=== PATIENT | female | born 1980 | race Caucasian/White ===

== ENCOUNTER 2018-03-13 15:00 | Emergency (ER) | payer OTHER ==
[2018-03-13 15:16] VITALS: O2SAT 99
--- NOTE | 2018-03-13 15:23 | C.PDOC ---
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 No laceration or nail bed injury. Denies wrist/elbow or arm pain. R hand dominant./ Time Seen by Provider: 03/13/18 15:20 Chief Complaint (Nursing): Upper Extremity Problem/Injury History Per: Patient, [employer] Electrical Engineer (KAELA Quach) Onset/Duration Of Symptoms: Sudden Onset Current Symptoms Are (Timing): Still Present Quality: Sharp Severity: Moderate Exacerbating Factor(s): Strenuous Use Of Affected Area Past Medical History Reviewed: Historical Data, Nursing Documentation Vital Signs: Last Vital Signs Temp 98 F 03/13/18 15:13 Pulse 98 H 03/13/18 15:13 Resp 18 03/13/18 15:13 BP 111/74 03/13/18 15:13 Pulse Ox 99 03/13/18 15:13 - Medical History PMH: No Chronic Diseases Family History: States: Unknown Family Hx - Social History Hx Alcohol Use: No Hx Substance Use: No - Immunization History Hx Tetanus Toxoid Vaccination: No Hx Influenza Vaccination: No Hx Pneumococcal Vaccination: No Review Of Systems Except As Marked, All Systems Reviewed And Found Negative. Musculoskeletal: Positive for: Hand Pain. Negative for: Shoulder Pain, Arm Pain, Back Pain, Leg Pain Physical Exam - Physical Exam Appears: Well Head: Atraumatic Extremity: Tenderness (per RN R thumb w small deformity) ED Course And Treatment O2 Sat by Pulse Oximetry: 99 Pulse Ox Interpretation: Normal Medical Decision Making Medical Decision Making: tylenol initiated for pain r/o subluxation/ tendon injury/ fracture xray ordered endorsed to ground provider Dr Joyce for followup and dispo. Disposition Discussed With : Ashanti Joyce Doctor Will See Patient In The: ED - Disposition Disposition: HOME/ ROUTINE Disposition Time: 15:35 (dr joyce) Condition: STABLE Additional Instructions: DELON MORRISON, thank you for letting us take care of you today. Your provider was Ashanti Joyce MD and you were treated for FINGER PAIN. The emergency medical care you received today was directed at your acute symptoms. If you were prescribed any medication, please fill it and take as directed. It may take several days for your symptoms to resolve. Return to the Emergency Department if your symptoms worsen, do not improve, or if you have any other problems. Please contact your doctor or call one of the physicians/clinics you have been referred to that are listed on the Patient Visit Information form that is included in your discharge packet. Bring any paperwork you were given at discharge with you along with any medications you are taking to your follow up visit. Our treatment cannot replace ongoing medical care by a primary care provider outside of the emergency department. Thank you for allowing the [email or web address] team to be part of your care today. If you had an X-Ray or CT scan: A Radiologist will review the ED reading if any change in treatment is needed we will contact you. If you had a blood, urine, or wound culture: It will take several days for the results, if any change in treatment is needed we will contact you. If you had an STI test: It will take 48 hours for the results. Please call after 1 week if you have not heard back. Instructions: Sprained Thumb (DC) Forms: Gen Discharge Inst Romansh, [employer] (Romansh), Work Excuse Print Language: URDU - POA Present On Arrival: Falls Or Trauma - Clinical Impression Clinical Impression: Thumb injury
--- NOTE | 2018-03-13 16:07 | RAD ---
Date of service: 03/13/2018 PROCEDURE: Right Thumb radiographs. HISTORY: R thumb injury COMPARISON: None. TECHNIQUE: AP radiograph of the right hand, as well as spot oblique and lateral images of thumb were obtained. FINDINGS: RIGHT THUMB: Normal right thumb, without fracture or focal lesion. Remainder of the right hand (as seen on the AP view) grossly unremarkable. JOINTS: Normal. SOFT TISSUES: Normal. OTHER FINDINGS: None. IMPRESSION: Normal right thumb radiographs.
[2018-03-13 16:32] VITALS: BP 119/79; PULSE 80; RESP 20; TEMP 98.6
== END 2018-03-13 16:30 | disposition home or self-care (01) ==
LOC: C.ER 15:00
DX: S69.91XA Unspecified injury of right wrist, hand and finger(s), initial encounter (principal); X50.0XXA Overexertion from strenuous movement or load, initial encounter; Y92.69 Other specified industrial and construction area as the place of occurrence of the external cause; Y99.0 Civilian activity done for income or pay